=== PATIENT | female | born 1965 | race Caucasian/White ===

== ENCOUNTER 2017-02-12 16:30 | Emergency (ER) | payer OTHER, BC ==
[~2017-02-12] VITALS: Ht 172.7 cm; Wt 71.7 kg
[2017-02-12 16:31] VITALS: BP 125/84
--- NOTE | 2017-02-12 17:19 | RAD ---
Right hand, 3 views, 02/12/2017: History: Pain, injury No fracture or dislocation is identified.. The soft tissues are unremarkable. IMPRESSION: No acute right hand abnormality is detected.
[2017-02-12] MEDS ORDERED: HYDR-971 PO (17:29)
[2017-02-12] MEDS ORDERED: NAPR500T PO (17:29)
--- NOTE | 2017-02-12 17:31 | PHYS DOC ---
General Chief Complaint: HAND PROBLEM Stated Complaint: HAND INJURY Time Seen by MD: 16:45 Source: patient Exam Limitations: no limitations Problems: History of Present Illness Initial Comments Pt is 51/F to ED with Work Comp hand injury. 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 Pain immediately, severe at first now moderate-throbbing. No localization, screen fell across dorsal MCP joints, redness and bruising noted some soft tissue swelling.. No numbness/weakness/tingling/radiating sx, pt can use hand with discomfort. Pt to ED to r/o fracture. No prior injury. Onset: this afternoon Severity: moderate Pain/Injury Location: left hand, left 2nd finger, left 3rd finger, left 4th finger, left 5th finger Method of Injury: direct blow Modifying Factors: improves with cold therapy, improves with immobilization, worse with jarring, worse with movement, improves with rest Allergies: Coded Allergies: bacitracin (Verified Allergy, Severe, rash, 02/12/17) neomycin (Verified Allergy, Severe, rash, 02/12/17) polymyxin B (Verified Allergy, Severe, rash, 02/12/17) meperidine (Verified Allergy, Intermediate, rash, 02/12/17) Past Medical History Medical History: other (non-Hodgkins lymphoma, DM, HTN, hypothyroid) Surgical History: noncontributory Social History Smoker: non-smoker Alcohol: none Drugs: none Review of Systems Constitutional: denies chills, denies fever Respiratory: denies cough, denies shortness of breath Cardiovascular: denies chest pain, denies palpitations Gastrointestinal: denies nausea, denies vomiting Musculoskeletal: see HPI Psychiatric/Neurological: see HPI Physical Exam General Appearance: WD/WN, no apparent distress Neck: non-tender, supple Cardiovascular/Respiratory: normal peripheral pulses, no respiratory distress Wrist: normal inspection, non-tender, no evidence of injury Hand: swelling (L hand: approx 3cm wide line of redness/bruising across dorsal MCP joints left hand, some palmar bruising at MC heads noted. Ligs/ tendons intact no palpable bony deformity, pain generally w/tenderness no skin breaks) Neurologic/Tendon: normal sensation, normal motor functions, normal tendon functions, responds to pain, no evidence tendon injury Psychiatric: alert, oriented x 3 Skin: warm/dry (L hand as above) Orders, Labs, Meds L Hand: no acute bony abnormality Departure Time of Disposition: 17:30 Disposition: 01 HOME, SELF-CARE Diagnosis: left hand contusion Condition: GOOD Patient Instructions: Hand Contusion, [id number], RICE - Routine Care for Injuries, [id number] Additional Instructions: RICE, see handout. Activity as tolerated. Rx: naprosyn, norco 5mg #15 Take meds with food. Follow up with your doctor in 2 weeks if not better and with your employer re: work comp. Return to ED with new or changing symptoms. DINORA MARTÍNEZ DO Feb 12, 2017 17:31
== END 2017-02-12 17:35 | disposition home or self-care (01) ==
LOC: ER 16:30
DX: S60.222A Contusion of left hand, initial encounter (principal); E03.9 Hypothyroidism, unspecified; E11.9 Type 2 diabetes mellitus without complications; I10 Essential (primary) hypertension; Z85.72 Personal history of non-Hodgkin lymphomas; Z88.1 Allergy status to other antibiotic agents; Z88.8 Allergy status to other drugs, medicaments and biological substances; W20.8XXA Other cause of strike by thrown, projected or falling object, initial encounter; Y93.89 Activity, other specified; Y99.8 Other external cause status; Y92.89 Other specified places as the place of occurrence of the external cause
CPT/HCPCS: 73130; 99284

== ENCOUNTER → 2019-05-24 | Outpatient (CLI) | payer BC ==
[~2019-05-24] MED LIST: HYDR-3165 PO; NAPR-683 PO
[2019-05-24 10:20] LABS: ALBUMIN 3.8 g/dL (3.4-5.0); CALCIUM 9.6 mg/dL (8.5-10.1); CREATININE 1.2 mg/dL (0.6-1.0); GFR 47.2; POTASSIUM 4.1 mmol/L (3.5-5.1); TOTAL BILIRUBIN 0.2 mg/dL (0.2-1.0); TOTAL PROTEIN 7.5 g/dL (6.4-8.2)
== END | disposition home or self-care (01) ==
LOC: LAB 09:03
PROVIDERS: ATTEND Nurse Practitioner Gerontology
DX: R79.89 Other specified abnormal findings of blood chemistry (principal)
CPT/HCPCS: 36415; 80053

== ENCOUNTER 2019-07-24 07:58 | Inpatient (IN) | payer BC ==
[2019-07-24] VITALS (12 sets, daily range): BP systolic 145–198; BP diastolic 78–94
[~2019-07-24] VITALS: Ht 172.7 cm; Wt 75.3 kg
[2019-07-24] MEDS ORDERED: OMEP20TA8 PO (08:35)
[2019-07-24] MEDS ORDERED: ATOR40TA59 PO (08:35)
[2019-07-24] MEDS ORDERED: METF750T39 PO (08:35)
[2019-07-24] MEDS ORDERED: NEBI10TA3 PO (08:35)
[2019-07-24] MEDS ORDERED: PRAS10TA9 PO (08:35)
[2019-07-24] MEDS ORDERED: HYDR-2869 PO (08:35)
[2019-07-24] MEDS ORDERED: DILT240T8 PO (08:35)
[2019-07-24] MEDS ORDERED: DULA0.75 SQ (08:35)
[2019-07-24] MEDS ORDERED: MAGN400C PO (08:35)
[2019-07-24] MEDS ORDERED: LEVO125T PO (08:35)
[2019-07-24] MEDS ORDERED: ONDA4TAB7 PO (08:35)
[2019-07-24] MEDS ORDERED: METF500T11 PO (08:35)
[2019-07-24] MEDS ORDERED: SULF500T7 PO (08:35)
[2019-07-24] MEDS ORDERED: TEMA15CA PO (08:35)
[2019-07-24] MEDS ORDERED: ASPI-630 PO (08:35)
[2019-07-24] MEDS ORDERED: LISI-334 PO (08:35)
[2019-07-24] MEDS ORDERED: TRAM50TA PO (08:35)
[2019-07-24] MEDS ORDERED: TEMAZEPAM 15 MG CAPSULE PO SCH (10:00)
[2019-07-24] MEDS ORDERED: traMADol 50 MG TABLET PO PRN (10:00)
[2019-07-24 10:23] LABS: BASO % 1 % (0-3); EOS # 0.1 x10^3/uL (0.0-0.7); EOS % 1 % (0-3); HEMATOCRIT 33.1 % (36.0-47.0); HEMOGLOBIN 10.8 g/dL (12.0-15.5); LYMPH % 29 % (24-48); MEAN CORPUSCULAR HEMOGLOBIN 26 pg (25-35); MEAN CORPUSCULAR HGB CONC 33 g/dL (31-37); MEAN CORPUSCULAR VOLUME 80 fL (79-100); MONO # 0.6 x10^3/uL (0.0-1.1); MONO % 9 % (0-9); NEUT # 4.1 x10^3uL (1.8-7.7); NEUT % 60 % (31-73); PLATELET COUNT 281 x10^3/uL (140-400); RED BLOOD COUNT 4.16 x10^6/uL (3.50-5.40); RED CELL DISTRIBUTION WIDTH 15.4 % (11.5-14.5); WHITE BLOOD COUNT 6.9 x10^3/uL (4.0-11.0)
[2019-07-24 10:29] LABS: CALCIUM 9.4 mg/dL (8.5-10.1); CREATININE 1.3 mg/dL (0.6-1.0); MAGNESIUM 1.8 mg/dL (1.8-2.4); POTASSIUM 4.1 mmol/L (3.5-5.1)
[2019-07-24] MEDS ORDERED: ONDANSETRON ODT 4 MG TAB.RAPDIS PO PRN (10:30)
[2019-07-24] MEDS: DOFETILIDE 250 MCG CAPSULE PO SCH ×2 (10:55→21:00)
--- NOTE | 2019-07-24 11:57 | EKG ---
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
[2019-07-24] MEDS: ACETAMINOPHEN 325 MG TABLET PO PRN ×2 (12:58→19:31)
[2019-07-24] MEDS: MAGNESIUM OXIDE 400 MG TABLET PO SCH ×2 (15:10→20:38)
--- NOTE | 2019-07-24 16:45 | HP ---
ADMIT DATE: HISTORY OF PRESENT ILLNESS: The patient is a 53-year-old female patient who was admitted directly from the Cardiology office as the patient has atrial fibrillation. She apparently has had home monitor, which showed that she was in AFib. She also was complaining of chest pain, had had a stress test and underwent percutaneous coronary intervention with stent deployment on 06/29/2019. However, she continued to be very symptomatic; complaining of palpitation, dizziness and chest discomfort. She apparently was on Cardizem and Bystolic; however, her heart rate continued to be irregular and was admitted to be started on Tikosyn. PAST MEDICAL HISTORY: Significant for coronary artery disease, status post PCI with stent deployment; atrial fibrillation; type 2 diabetes mellitus; hypertension; hyperlipidemia; multinodular goiter; Hodgkin lymphoma, diagnosed in 1997, treated with chemotherapy and currently in remission. She is also known to have ankylosing spondylitis. She also had cholelithiasis for which she underwent ERCP and stone retrieval after her laparoscopic cholecystectomy. PAST SURGICAL HISTORY: Significant for PCI with stent deployment, cholecystectomy, total abdominal hysterectomy, bilateral salpingo-oophorectomy, bone marrow biopsy, thyroidectomy, esophagogastroduodenoscopy and colonoscopy as well as ERCP. ALLERGIES: She is allergic to BACITRACIN, MEPERIDINE, NEOMYCIN and POLYMYXIN. MEDICATIONS: She is currently on following medications: She is on sulfasalazine 1000 mg twice a day, Effient 10 mg once a day, atorvastatin calcium 40 mg daily, hydralazine 50 mg twice a day, Bystolic 20 mg once a day, diltiazem hydrochloride 240 mg once a day, lisinopril 20 mg daily, aspirin 81 mg once a day, tramadol 100 mg at bedtime, temazepam 15 mg capsule 1 capsule at bedtime as needed for insomnia, magnesium oxide 400 mg daily, ondansetron 4 mg every 4-6 hours as needed for nausea and vomiting, omeprazole 20 mg at bedtime, metformin 750 mg at bedtime and she is on Trulicity 0.75 mcg subcutaneously once a week, levothyroxine 125 mcg once a day. FAMILY HISTORY: She has one twin sister who is diabetic and one younger sister who is healthy. Her father is still alive at the age of 72 and has diabetes mellitus. Her mother at age of 29 because of rupture of cerebral aneurysm. SOCIAL HISTORY: She is single, never , has no kids. She does not smoke, drink alcohol or use any recreational drugs. 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 REVIEW OF SYSTEMS: The patient denied any blurring of vision, cataract, glaucoma or macular degeneration. Denied any earache, tinnitus or sensorineural deafness. Denied any nosebleeds, stuffy nose or postnasal drip. Denied any sore throat, sore tongue, toothache, hoarseness of voice or difficulty swallowing. Denied any nausea, vomiting, diarrhea or constipation. Denied any hematemesis, melena or hematochezia. Denied any dysuria, frequency or hematuria. Did complain of chest discomfort and shortness of breath as well as palpitation, but denied any orthopnea or paroxysmal nocturnal dyspnea. Denied any cough, phlegm or hemoptysis. Denied any chills, rigors or fever. PHYSICAL EXAMINATION: GENERAL: On arrival to the ICU, she looked well and was clearly in no apparent respiratory distress, slightly pale, but no jaundice, cyanosis or thyromegaly. No jugular venous distention. No limb edema. VITAL SIGNS: Her heart rate was 64, irregularly irregular; blood pressure 169/82; temperature was 98; respiratory rate was 12 and oxygen saturation was 98% on room air. HEAD, EYES, EARS, NOSE AND THROAT: Showed normocephalic, atraumatic. NECK: Supple. HEART: Showed regular first heart sound, normal second heart sounds with no gallop, rub or murmur. CHEST: Clear to auscultation. No crepitation or rhonchi. ABDOMEN: Distended, soft, nontender. NEUROLOGIC: She is awake, alert, responding appropriately. All cranial nerves intact. She moves extremities without difficulty. She ambulates without assistance or assistive device. LABORATORY DATA: Showed a white cell count of 6900, hemoglobin 11, hematocrit 33, MCV 80 and platelet count 281,000 with normal manual differential. Her chemistry showed a serum sodium 141, potassium 4.1, chloride 105, bicarbonate 25, anion gap of 11, BUN 16, creatinine 1.3, estimated GFR was 43 mL per minute. Her glucose was 92, calcium was 9.4, and magnesium was 1.8. ASSESSMENT AND PLAN: In summary, this is a 53-year-old female patient who has atrial fibrillation that controlled by Cardizem and Bystolic. She is here to be switched to Tikosyn. My plan is to continue all her medication, increase her magnesium supplement to 400 mg 3 times a day. Check her TSH tomorrow. PAPA BERMUDEZ MD DR: JEFF/vianey JOB#: [id number] / [id number]
--- NOTE | 2019-07-24 16:57 | EKG ---
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
--- NOTE | 2019-07-24 17:08 | PDOC2 ---
CONSULT Date of Admission DATE: 07/24/19 TIME: 17:08 Reason for Consult: Atrial fibrillation Referring Physician: Dr. Saavedra Source: Chart review, Patient History of Present Illness 53-year-old female with history of recurrent atrial fibrillation has been admitted for initiation of Tikosyn/Dofetilide for antiarrhythmic therapy. Patient complained of intermittent episodes of palpitations but denied any dizziness or syncope. She complained of mild chest pain with these palpitations but she denied any chest pain or dyspnea on exertion when she is not having any palpitations. She denied any orthopnea/PND. Past Medical History Paroxysmal atrial fibrillation Coronary artery disease s/p PCI/stent placement LCx Hypertension Hyperlipidemia Hypothyroidism Hodgkin's lymphoma s/p chemotherapy Past Surgical History Cholecystectomy Hysterectomy Thyroidectomy Family History Diabetes mellitus and hypertension Social History Patient denied any smoking, alcohol or drug use Current Medications Current Medications Influenza Virus Vaccine Quadrival (Afluria Quad 2019-20 (3yr Up) Syringe) 0.5 ml ONCE ONCE VAX IM ; Start 07/25/19 at 09:00; Stop 07/25/19 at 09:01 Dofetilide (Tikosyn) 250 mcg BID PO Last administered on 07/24/19at 10:55; Start 07/24/19 at 11:00 Aspirin (Children'S Aspirin) 81 mg DAILY PO ; Start 07/25/19 at 09:00 Hydralazine HCl (Apresoline) 50 mg BID PO ; Start 07/24/19 at 21:00 Levothyroxine Sodium (Synthroid) 125 mcg DAILY06 PO ; Start 07/25/19 at 06:00 Lisinopril (Prinivil) 20 mg DAILY PO ; Start 07/25/19 at 09:00 Metformin HCl (Glucophage Xr) 500 mg HS PO ; Start 07/24/19 at 21:00 Prasugrel (Effient) 10 mg DAILY PO ; Start 07/25/19 at 09:00 Sulfasalazine (Azulfidine) 1,000 mg BID PO ; Start 07/24/19 at 21:00 Temazepam (Restoril) 15 mg PRN QHS PO ; Start 07/24/19 at 10:00 Tramadol HCl (Ultram) 100 mg HS PRN PO PAIN; Start 07/24/19 at 10:00 Atorvastatin Calcium (Lipitor) 40 mg DAILY PO ; Start 07/25/19 at 09:00 Diltiazem HCl (Cardizem 24hr Cd) 240 mg DAILY PO ; Start 07/25/19 at 09:00 Non-Formulary Medication (Dulaglutide (Trulicity)) 0.75 mg WEEKLY SQ ; Start 07/31/19 at 09:00; Status UNV Magnesium Oxide (Magnesium Oxide) 400 mg DAILY PO ; Start 07/25/19 at 09:00; Stop 07/24/19 at 14:54; Status DC Metformin HCl (Glucophage Xr) 750 mg DAILYWBKFT PO ; Start 07/25/19 at 08:00 Metoprolol Tartrate (Lopressor) 50 mg BID PO ; Start 07/24/19 at 21:00; Stop 07/24/19 at 11:09; Status DC Pantoprazole Sodium (Protonix) 40 mg QHS PO ; Start 07/24/19 at 21:00 Ondansetron HCl (Zofran Odt) 4 mg PRN Q4HRS PRN PO NAUSEA/VOMITING; Start 07/24 at 10:30 Acetaminophen (Tylenol) 650 mg PRN Q6HRS PRN PO fever, headache Last administered on 07/24/19at 12:58; Start 07/24/19 at 13:00 Magnesium Oxide (Magnesium Oxide) 400 mg TID PO Last administered on 07/24/19at 15:10; Start 07/24/19 at 15:00 Active Scripts Active Reported Magnesium (Magnesium Oxide) 400 Mg Capsule 1 Cap PO DAILY Zofran (Ondansetron Hcl) 4 Mg Tablet 1 Tab PO PRN Q4-6HRS Temazepam 15 Mg Capsule 1 Cap PO PRN QHS Tramadol Hcl (Tramadol HCl) 50 Mg Tablet 100 Mg PO HS PRN Omeprazole 20 Mg Tablet.dr 1 Tab PO HS Sulfasalazine 500 Mg Tablet 1,000 Mg PO BID Metformin Hcl Er (Metformin Hcl) 500 Mg Tab.er.24h 1 Tab PO HS Metformin Hcl Er (Metformin Hcl) 750 Mg Tab.er.24h 1 Tab PO DAILY Trulicity (Dulaglutide) 0.75 Mg/0.5 Ml Pen.injctr 0.75 Mg SQ WEEKLY Synthroid (Levothyroxine Sodium) 125 Mcg Tablet 1 Tab PO DAILY Atorvastatin Calcium 40 Mg Tablet 1 Tab PO DAILY Diltiazem 24Hr ER (Diltiazem HCl) 240 Mg Tab.er.24h 240 Mg PO DAILY Bystolic (Nebivolol Hcl) 10 Mg Tablet 2 Tab PO DAILY Hydralazine Hcl 50 Mg Tablet 1 Tab PO BID Lisinopril 20 Mg Tablet 1 Tab PO DAILY Aspirin 81 Mg Tab.chew 81 Mg PO DAILY Effient (Prasugrel Hcl) 10 Mg Tablet 1 Tab PO DAILY Allergies: Coded Allergies: bacitracin (Verified Allergy, Severe, rash, 02/12/17) neomycin (Verified Allergy, Severe, rash, 02/12/17) polymyxin B (Verified Allergy, Severe, rash, 02/12/17) meperidine (Verified Allergy, Intermediate, rash, 02/12/17) PSYCHOLOGICAL ROS: No: Hallucinations Eyes: No: Loss of vision HEENT: No: Epistaxis Respiratory: No: Hemoptysis, Shortness of breath Cardiovascular: yes: Chest Pain, Palpitations Gastrointestinal: No: Vomiting Genitourinary: No: [place] Neurological: No: Seizures Skin: No: Rash General: Alert, Oriented X3 HEENT: Atraumatic, PERRLA Lungs: Clear to auscultation Heart: Regular rate Abdomen: Soft, No tenderness Extremities: No edema Psych/Mental Status: Mood NL VITALS Vital Signs Date Time Temp Pulse Resp B/P (MAP) Pulse Ox O2 Delivery O2 Flow Rate FiO2 07/24/19 17:02 60 14 186/86 (119) 100 Room Air 07/24/19 16:17 98.2 Labs Laboratory Tests Test 07/24/19 10:10 White Blood Count 6.9 x10^3/uL (4.0-11.0) Red Blood Count 4.16 x10^6/uL (3.50-5.40) Hemoglobin 10.8 g/dL (12.0-15.5) Hematocrit 33.1 % (36.0-47.0) Mean Corpuscular Volume 80 fL (79-100) Mean Corpuscular Hemoglobin 26 pg (25-35) Mean Corpuscular Hemoglobin Concent 33 g/dL (31-37) Red Cell Distribution Width 15.4 % (11.5-14.5) Platelet Count 281 x10^3/uL (140-400) Neutrophils (%) (Auto) 60 % (31-73) Lymphocytes (%) (Auto) 29 % (24-48) Monocytes (%) (Auto) 9 % (0-9) Eosinophils (%) (Auto) 1 % (0-3) Basophils (%) (Auto) 1 % (0-3) Neutrophils # (Auto) 4.1 x10^3uL (1.8-7.7) Lymphocytes # (Auto) 2.0 x10^3/uL (1.0-4.8) Monocytes # (Auto) 0.6 x10^3/uL (0.0-1.1) Eosinophils # (Auto) 0.1 x10^3/uL (0.0-0.7) Basophils # (Auto) 0.0 x10^3/uL (0.0-0.2) Sodium Level 141 mmol/L (136-145) Potassium Level 4.1 mmol/L (3.5-5.1) Chloride Level 105 mmol/L (98-107) Carbon Dioxide Level 25 mmol/L (21-32) Anion Gap 11 (6-14) Blood Urea Nitrogen 16 mg/dL (7-20) Creatinine 1.3 mg/dL (0.6-1.0) Estimated GFR (Cockcroft-Gault) 43.0 Glucose Level 92 mg/dL (70-99) Calcium Level 9.4 mg/dL (8.5-10.1) Magnesium Level 1.8 mg/dL (1.8-2.4) Assessment/Plan 1. Paroxysmal atrial fibrillation with recurrent episodes. Telemetry showed few paroxysms. Patient is being symptomatic with palpitations and chest pain with these episodes. LV systolic function normal recent echo. Start Tikosyn for antiarrhythmic therapy and monitor QTc interval on EKG closely. Patient's ChadsVasc score is 4 and would benefit from anticoagulation. 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 Patient is currently scheduled to see electrophysiology team. 2. Hypertension: Slightly elevated. Resume home antihypertensives and titrate for better control. 3. Coronary artery disease s/p PCI/stent to LCx, presently stable and chest pain-free. Continue current secondary prevention measures. 4. Hyperlipidemia: Continue statin therapy. 5. Diabetes mellitus type 2: Treat per GEOVANNA MONROE MD Jul 24, 2019 17:08
[2019-07-24] MEDS: sulfaSALAzine 500 MG TABLET PO SCH (20:38)
[2019-07-24] MEDS ORDERED: PANTOPRAZOLE 40 MG TABLET. PO SCH (21:00)
[2019-07-24] MEDS ORDERED: METOPROLOL TART IMMED RELEASE 50 MG TABLET PO SCH (21:00)
[2019-07-24] MEDS ORDERED: metFORMIN XR 500 MG TAB.ER.24H PO SCH (21:00)
[2019-07-25] VITALS (11 sets, daily range): BP systolic 150–166; BP diastolic 66–99
[2019-07-25] MEDS ORDERED: LEVOTHYROXINE 125 MCG TABLET PO SCH (06:00)
[2019-07-25 07:11] LABS: CALCIUM 9.3 mg/dL (8.5-10.1); CREATININE 1.1 mg/dL (0.6-1.0); GFR 52.2; HEMATOCRIT 35.5 % (36.0-47.0); HEMOGLOBIN 11.7 g/dL (12.0-15.5); PHOSPHORUS 3.8 mg/dL (2.6-4.7); RED BLOOD COUNT 4.52 x10^6/uL (3.50-5.40); RED CELL DISTRIBUTION WIDTH 15.3 % (11.5-14.5); WHITE BLOOD COUNT 6.2 x10^3/uL (4.0-11.0)
[2019-07-25] MEDS ORDERED: metFORMIN XR 500 MG TAB.ER.24H PO SCH (08:00)
[2019-07-25] MEDS: sulfaSALAzine 500 MG TABLET PO SCH (08:17)
[2019-07-25] MEDS: MAGNESIUM OXIDE 400 MG TABLET PO SCH ×2 (08:18→13:50)
[2019-07-25] MEDS ORDERED: FLU VAX QS 2019-20 (36MOS+)/PF 0.5 ML SYRINGE. VAX IM ONE (09:00)
[2019-07-25] MEDS ORDERED: ASPIRIN 81 MG TAB.CHEW PO SCH (09:00)
[2019-07-25] MEDS ORDERED: LISINOPRIL 20 MG TABLET PO SCH (09:00)
[2019-07-25] MEDS ORDERED: ATORVASTATIN CALCIUM 20 MG TABLET PO SCH (09:00)
[2019-07-25] MEDS ORDERED: MAGNESIUM OXIDE 400 MG TABLET PO SCH (09:00)
[2019-07-25] MEDS ORDERED: PRASUGREL 10 MG TABLET. PO SCH (09:00)
[2019-07-25] MEDS: DOFETILIDE 250 MCG CAPSULE PO SCH ×2 (09:09→17:28)
[2019-07-25] MEDS: ACETAMINOPHEN 325 MG TABLET PO PRN (13:49)
--- NOTE | 2019-07-25 14:54 | PDOC ---
PROGRESS NOTES Diagnosis DIAGNOSIS atrial fibrillation Assessment Atrial fibrillation-now in sinus rhythm -Cardiology primary team-managing problem -Started on Tikosyn and the patient had converted -Treatment per cardiology, on diltiazem and Tikosyn Hypertension -Continue lisinopril Hyperlipidemia -Continue Lipitor Diabetes type 2 -On metformin Hypothyroidism -Continue Synthroid Insomnia -Temazepam when necessary Subjective the patient is feeling well, no fevers, no chills, no chest pain, shortness of breath Objective Vital Signs Date Time Temp Pulse Resp B/P (MAP) Pulse Ox O2 Delivery O2 Flow Rate FiO2 07/25/19 11:45 97.4 66 18 166/66 (99) 98 Room Air Intake and Output 07/25/19 07:00 Intake Total 575 ml Balance 575 ml Intake Oral 575 ml # Voids 2 Physical Exam alert and oriented 3, no acute distress PERRLA, EOMI Regular rate and rhythm Clear to auscultation bilaterally Pounds, nontender, nondistended Cranial nerves II through XII grossly intact No rashes No edema Review of Relevant I have reviewed the following items yamil (where applicable) has been applied. Labs Laboratory Tests Test 07/24/19 10:10 07/25/19 05:55 White Blood Count 6.9 x10^3/uL (4.0-11.0) 6.2 x10^3/uL (4.0-11.0) Red Blood Count 4.16 x10^6/uL (3.50-5.40) 4.52 x10^6/uL (3.50-5.40) Hemoglobin 10.8 g/dL (12.0-15.5) 11.7 g/dL (12.0-15.5) Hematocrit 33.1 % (36.0-47.0) 35.5 % (36.0-47.0) Mean Corpuscular Volume 80 fL (79-100) 79 fL (79-100) Mean Corpuscular Hemoglobin 26 pg (25-35) 26 pg (25-35) Mean Corpuscular Hemoglobin Concent 33 g/dL (31-37) 33 g/dL (31-37) Red Cell Distribution Width 15.4 % (11.5-14.5) 15.3 % (11.5-14.5) Platelet Count 281 x10^3/uL (140-400) 305 x10^3/uL (140-400) Neutrophils (%) (Auto) 60 % (31-73) Lymphocytes (%) (Auto) 29 % (24-48) Monocytes (%) (Auto) 9 % (0-9) Eosinophils (%) (Auto) 1 % (0-3) Basophils (%) (Auto) 1 % (0-3) Neutrophils # (Auto) 4.1 x10^3uL (1.8-7.7) Lymphocytes # (Auto) 2.0 x10^3/uL (1.0-4.8) Monocytes # (Auto) 0.6 x10^3/uL (0.0-1.1) Eosinophils # (Auto) 0.1 x10^3/uL (0.0-0.7) Basophils # (Auto) 0.0 x10^3/uL (0.0-0.2) Sodium Level 141 mmol/L (136-145) 141 mmol/L (136-145) Potassium Level 4.1 mmol/L (3.5-5.1) 4.0 mmol/L (3.5-5.1) Chloride Level 105 mmol/L (98-107) 105 mmol/L (98-107) Carbon Dioxide Level 25 mmol/L (21-32) 24 mmol/L (21-32) Anion Gap 11 (6-14) 12 (6-14) Blood Urea Nitrogen 16 mg/dL (7-20) 14 mg/dL (7-20) Creatinine 1.3 mg/dL (0.6-1.0) 1.1 mg/dL (0.6-1.0) Estimated GFR (Cockcroft-Gault) 43.0 52.2 Glucose Level 92 mg/dL (70-99) 99 mg/dL (70-99) Calcium Level 9.4 mg/dL (8.5-10.1) 9.3 mg/dL (8.5-10.1) Magnesium Level 1.8 mg/dL (1.8-2.4) 2.0 mg/dL (1.8-2.4) Phosphorus Level 3.8 mg/dL (2.6-4.7) Thyroid Stimulating Hormone (TSH) 3.842 uIU/mL (0.358-3.740) Medications Current Medications Influenza Virus Vaccine Quadrival (Afluria Quad 2019-20 (3yr Up) Syringe) 0.5 ml ONCE ONCE VAX IM Last administered on 07/25/19 08:20; Start 07/25/19 at 09:00; Stop 07/25/19 at 09:01; Status DC Dofetilide (Tikosyn) 250 mcg BID PO Last administered on 07/25/19at 09:09; Start 07/24/19 at 11:00 Aspirin (Children'S Aspirin) 81 mg DAILY PO Last administered on 07/25/19at 08:18; Start 07/25/19 at 09:00 Hydralazine HCl (Apresoline) 50 mg BID PO Last administered on 07/25/19 08:18; Start 07/24/19 at 21:00 Levothyroxine Sodium (Synthroid) 125 mcg DAILY06 PO Last administered on 07/25/19at 05:52; Start 07/25/19 at 06:00 Lisinopril (Prinivil) 20 mg DAILY PO Last administered on 07/25/19at 08:19; Start 07/25/19 at 09:00 Metformin HCl (Glucophage Xr) 500 mg HS PO Last administered on 07/24/19at 20:39; Start 07/24/19 at 21:00 Prasugrel (Effient) 10 mg DAILY PO Last administered on 07/25/19at 08:20; Start 07/25/19 at 09:00 Sulfasalazine (Azulfidine) 1,000 mg BID PO Last administered on 07/25/19at 08:17; Start 07/24/19 at 21:00 Temazepam (Restoril) 15 mg PRN QHS PO Last administered on 07/24/19at 21:58; Start 07/24/19 at 10:00 Tramadol HCl (Ultram) 100 mg HS PRN PO PAIN Last administered on 07/24/19 21:56; Start 07/24/19 at 10:00 Atorvastatin Calcium (Lipitor) 40 mg DAILY PO Last administered on 07/25/19at 08:17; Start 07/25/19 at 09:00 Diltiazem HCl (Cardizem 24hr Cd) 240 mg DAILY PO Last administered on 07/25/19at 09:09; Start 07/25/19 at 09:00 Non-Formulary Medication (Dulaglutide (Trulicity)) 0.75 mg WEEKLY SQ ; Start 07/31/19 at 09:00; Status UNV Magnesium Oxide (Magnesium Oxide) 400 mg DAILY PO ; Start 07/25/19 at 09:00; Stop 07/24/19 at 14:54; Status DC Metformin HCl (Glucophage Xr) 750 mg DAILYWBKFT PO Last administered on 07/25/19at 08:17; Start 07/25/19 at 08:00 Metoprolol Tartrate (Lopressor) 50 mg BID PO ; Start 07/24/19 at 21:00; Stop 07/24/19 at 11:09; Status DC Pantoprazole Sodium (Protonix) 40 mg QHS PO Last administered on 07/24/19at 20:38; Start 07/24/19 at 21:00 Ondansetron HCl (Zofran Odt) 4 mg PRN Q4HRS PRN PO NAUSEA/VOMITING; Start 07/24/19 at 10:30 Acetaminophen (Tylenol) 650 mg PRN Q6HRS PRN PO fever, headache Last administered on 07/25/19at 13:49; Start 07/24/19 at 13:00 Magnesium Oxide (Magnesium Oxide) 400 mg TID PO Last administered on 07/25/19at 13:50; Start 07/24/19 at 15:00 Active Scripts Active Reported Magnesium (Magnesium Oxide) 400 Mg Capsule 1 Cap PO DAILY Zofran (Ondansetron Hcl) 4 Mg Tablet 1 Tab PO PRN Q4-6HRS Temazepam 15 Mg Capsule 1 Cap PO PRN QHS Tramadol Hcl (Tramadol HCl) 50 Mg Tablet 100 Mg PO HS PRN Omeprazole 20 Mg Tablet.dr 1 Tab PO HS Sulfasalazine 500 Mg Tablet 1,000 Mg PO BID Metformin Hcl Er (Metformin Hcl) 500 Mg Tab.er.24h 1 Tab PO HS Metformin Hcl Er (Metformin Hcl) 750 Mg Tab.er.24h 1 Tab PO DAILY Trulicity (Dulaglutide) 0.75 Mg/0.5 Ml Pen.injctr 0.75 Mg SQ WEEKLY Synthroid (Levothyroxine Sodium) 125 Mcg Tablet 1 Tab PO DAILY Atorvastatin Calcium 40 Mg Tablet 1 Tab PO DAILY Diltiazem 24Hr ER (Diltiazem HCl) 240 Mg Tab.er.24h 240 Mg PO DAILY Bystolic (Nebivolol Hcl) 10 Mg Tablet 2 Tab PO DAILY Hydralazine Hcl 50 Mg Tablet 1 Tab PO BID Lisinopril 20 Mg Tablet 1 Tab PO DAILY Aspirin 81 Mg Tab.chew 81 Mg PO DAILY Effient (Prasugrel Hcl) 10 Mg Tablet 1 Tab PO DAILY Vitals/I & O Vital Sign - Last 24 Hours 07/24/19 07/24/19 07/24/19 07/24/19 14:55 16:14 16:17 17:02 Temp 98.2 Pulse 76 71 60 Resp 14 14 14 B/P (MAP) 161/83 (109) 173/92 (119) 186/86 (119) Pulse Ox 100 100 100 O2 Delivery Room Air Room Air Room Air Room Air 07/24/19 07/24/19 07/24/19 07/24/19 18:06 18:57 20:07 20:38 Temp 98.5 Pulse 63 63 60 60 Resp 18 22 18 B/P (MAP) 173/94 (120) 173/89 (117) 175/83 (113) 175/83 Pulse Ox 98 98 100 O2 Delivery Room Air Room Air Room Air 07/24/19 07/24/19 07/24/19 07/24/19 21:00 21:56 22:17 22:59 Pulse 56 58 Resp 18 18 18 16 B/P (MAP) 198/90 (126) 186/92 (123) Pulse Ox 99 99 98 O2 Delivery Room Air Room Air Room Air Room Air 07/24/19 07/25/19 07/25/19 07/25/19 23:00 00:20 02:00 03:00 Pulse 59 80 79 81 Resp 16 16 16 16 B/P (MAP) 169/78 (108) 153/99 (117) 162/87 (112) 165/76 (105) Pulse Ox 98 99 98 98 O2 Delivery Room Air Room Air Room Air Room Air 07/25/19 07/25/19 07/25/19 07/25/19 04:04 05:01 06:06 07:30 Temp 97.6 Pulse 81 74 89 72 Resp 16 16 18 20 B/P (MAP) 150/87 (108) 150/96 (114) 166/97 (120) 162/95 (117) Pulse Ox 98 98 100 98 O2 Delivery Room Air Room Air Room Air Room Air 07/25/19 07/25/19 07/25/19 07/25/19 08:18 08:19 08:30 09:09 Pulse 70 89 Resp 16 B/P (MAP) 162/95 162/95 164/97 (119) 162/95 Pulse Ox 98 O2 Delivery Room Air 07/25/19 07/25/19 09:30 11:45 Temp 97.4 Pulse 68 66 Resp 20 18 B/P (MAP) 161/70 (100) 166/66 (99) Pulse Ox 98 98 O2 Delivery Room Air Room Air Intake and Output 07/24/19 07/24/19 07/25/19 15:00 23:00 07:00 Intake Total 275 ml 300 ml Balance 275 ml 300 ml DREW SHARMA MD Jul 25, 2019 14:54
[2019-07-25] MEDS ORDERED: DOFE250C PO (17:17)
--- NOTE | 2019-07-25 18:34 | EKG ---
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
--- NOTE | 2019-07-25 23:20 | PDOC3 ---
Discharge Summary Visit Information Date of Admission: Jul 24, 2019 Date of Discharge: Jul 25, 2019 Admitting Diagnosis: 1. PAF Admitting Diagnosis Comments 1. PAF - Recurrent palpitations, afib with symptoms of angina 2. CAD s/p PCI 3. HTN Final Diagnosis 1. PAF 2. HTN 3. CAD 4. DM2 5. Dyslipidemia Brief Hospital Course Allergies Allergies Coded Allergies Type Severity Reaction Last Updated Verified bacitracin Allergy Severe rash 02/12/17 Yes neomycin Allergy Severe rash 02/12/17 Yes polymyxin B Allergy Severe rash 02/12/17 Yes meperidine Allergy Intermediate rash 02/12/17 Yes Vital Signs Vital Signs Date Time Temp Pulse Resp B/P (MAP) Pulse Ox O2 Delivery O2 Flow Rate FiO2 07/25/19 17:34 70 20 164/67 (99) 98 Room Air 07/25/19 11:45 97.4 Lab Results Laboratory Tests Test 07/24/19 10:10 07/25/19 05:55 White Blood Count 6.9 x10^3/uL (4.0-11.0) 6.2 x10^3/uL (4.0-11.0) Red Blood Count 4.16 x10^6/uL (3.50-5.40) 4.52 x10^6/uL (3.50-5.40) Hemoglobin 10.8 g/dL (12.0-15.5) 11.7 g/dL (12.0-15.5) Hematocrit 33.1 % (36.0-47.0) 35.5 % (36.0-47.0) Mean Corpuscular Volume 80 fL (79-100) 79 fL (79-100) Mean Corpuscular Hemoglobin 26 pg (25-35) 26 pg (25-35) Mean Corpuscular Hemoglobin Concent 33 g/dL (31-37) 33 g/dL (31-37) Red Cell Distribution Width 15.4 % (11.5-14.5) 15.3 % (11.5-14.5) Platelet Count 281 x10^3/uL (140-400) 305 x10^3/uL (140-400) Neutrophils (%) (Auto) 60 % (31-73) Lymphocytes (%) (Auto) 29 % (24-48) Monocytes (%) (Auto) 9 % (0-9) Eosinophils (%) (Auto) 1 % (0-3) Basophils (%) (Auto) 1 % (0-3) Neutrophils # (Auto) 4.1 x10^3uL (1.8-7.7) Lymphocytes # (Auto) 2.0 x10^3/uL (1.0-4.8) Monocytes # (Auto) 0.6 x10^3/uL (0.0-1.1) Eosinophils # (Auto) 0.1 x10^3/uL (0.0-0.7) Basophils # (Auto) 0.0 x10^3/uL (0.0-0.2) Sodium Level 141 mmol/L (136-145) 141 mmol/L (136-145) Potassium Level 4.1 mmol/L (3.5-5.1) 4.0 mmol/L (3.5-5.1) Chloride Level 105 mmol/L (98-107) 105 mmol/L (98-107) Carbon Dioxide Level 25 mmol/L (21-32) 24 mmol/L (21-32) Anion Gap 11 (6-14) 12 (6-14) Blood Urea Nitrogen 16 mg/dL (7-20) 14 mg/dL (7-20) Creatinine 1.3 mg/dL (0.6-1.0) 1.1 mg/dL (0.6-1.0) Estimated GFR (Cockcroft-Gault) 43.0 52.2 Glucose Level 92 mg/dL (70-99) 99 mg/dL (70-99) Calcium Level 9.4 mg/dL (8.5-10.1) 9.3 mg/dL (8.5-10.1) Magnesium Level 1.8 mg/dL (1.8-2.4) 2.0 mg/dL (1.8-2.4) Phosphorus Level 3.8 mg/dL (2.6-4.7) Thyroid Stimulating Hormone (TSH) 3.842 uIU/mL (0.358-3.740) Brief Hospital Course Ms. Muniz is a 53 old [F] who was seen in the office last week with worsening paroxysms of afib. After a long discussion regarding various approaches to treatment, she ultimately chose anti-arrhythmic drug therapy. Due to her CAD, structural heart disease and prior lung disease, she was felt to be a poor candidate for amiodarone and Class 1 C agents. Therefore, she presented to the hospital for elective admission for Dofetilide loading. She had 4 doses and repeat EKG's were unremarkable. She was discharged to home in stable condition with EP follow up in 1 week. On day of discharge, he exam was unremarkable. Discharge Information Condition at Discharge: Stable Follow Up: Weeks Disposition/Orders: D/C to Home Dischare Medications Current Medications Influenza Virus Vaccine Quadrival (Afluria Quad 2019-20 (3yr Up) Syringe) 0.5 ml ONCE ONCE VAX IM Last administered on 07/25/19at 08:20; Start 07/25/19 at 09:00; Stop 07/25/19 at 09:01; Status DC Dofetilide (Tikosyn) 250 mcg BID PO Last administered on 07/25/19at 17:28; Start 07/24/19 at 11:00; Stop 07/25/19 at 17:55; Status DC Aspirin (Children'S Aspirin) 81 mg DAILY PO Last administered on 07/25/19at 08:18; Start 07/25/19 at 09:00; Stop 07/25/19 at 17:55; Status DC Hydralazine HCl (Apresoline) 50 mg BID PO Last administered on 07/25/19at 08:18; Start 07/24/19 at 21:00; Stop 07/25/19 at 17:55; Status DC Levothyroxine Sodium (Synthroid) 125 mcg DAILY06 PO Last administered on 07/25/19at 05:52; Start 07/25/19 at 06:00; Stop 07/25/19 at 17:55; Status DC Lisinopril (Prinivil) 20 mg DAILY PO Last administered on 07/25/19at 08:19; Start 07/25/19 at 09:00; Stop 07/25/19 at 17:55; Status DC Metformin HCl (Glucophage Xr) 500 mg HS PO Last administered on 07/24/19at 20:39; Start 07/24/19 at 21:00; Stop 07/25/19 at 17:55; Status DC Prasugrel (Effient) 10 mg DAILY PO Last administered on 07/25/19at 08:20; Start 07/25/19 at 09:00; Stop 07/25/19 at 17:55; Status DC Sulfasalazine (Azulfidine) 1,000 mg BID PO Last administered on 07/25/19at 08:17; Start 07/24/19 at 21:00; Stop 07/25/19 at 17:55; Status DC Temazepam (Restoril) 15 mg PRN QHS PO Last administered on 07/24/19at 21:58; Start 07/24/19 at 10:00; Stop 07/25/19 at 17:55; Status DC Tramadol HCl (Ultram) 100 mg HS PRN PO PAIN Last administered on 07/24/19at 21:56; Start 07/24/19 at 10:00; Stop 07/25/19 at 17:55; Status DC Atorvastatin Calcium (Lipitor) 40 mg DAILY PO Last administered on 07/25/19at 08:17; Start 07/25/19 at 09:00; Stop 07/25/19 at 17:55; Status DC Diltiazem HCl (Cardizem 24hr Cd) 240 mg DAILY PO Last administered on 07/25/19at 09:09; Start 07/25/19 at 09:00; Stop 07/25/19 at 17:55; Status DC Non-Formulary Medication (Dulaglutide (Trulicity)) 0.75 mg WEEKLY SQ ; Start 07/31/19 at 09:00; Stop 07/25/19 at 17:55; Status DC Magnesium Oxide (Magnesium Oxide) 400 mg DAILY PO ; Start 07/25/19 at 09:00; Stop 07/24/19 at 14:54; Status DC Metformin HCl (Glucophage Xr) 750 mg DAILYWBKFT PO Last administered on 07/25/19at 08:17; Start 07/25/19 at 08:00; Stop 07/25/19 at 17:55; Status DC Metoprolol Tartrate (Lopressor) 50 mg BID PO ; Start 07/24/19 at 21:00; Stop 07/24/19 at 11:09; Status DC Pantoprazole Sodium (Protonix) 40 mg QHS PO Last administered on 07/24/19at 20:38; Start 07/24/19 at 21:00; Stop 07/25/19 at 17:55; Status DC Ondansetron HCl (Zofran Odt) 4 mg PRN Q4HRS PRN PO NAUSEA/VOMITING; Start 07/24/19 at 10:30; Stop 07/25/19 at 17:55; Status DC Acetaminophen (Tylenol) 650 mg PRN Q6HRS PRN PO fever, headache Last administered on 07/25/19at 13:49; Start 07/24/19 at 13:00; Stop 07/25/19 at 17:55; Status DC Magnesium Oxide (Magnesium Oxide) 400 mg TID PO Last administered on 07/25/19at 13:50; Start 07/24/19 at 15:00; Stop 07/25/19 at 17:55; Status DC Active Scripts Active Reported Tikosyn (Dofetilide) 250 Mcg Capsule 250 Mcg PO BID Magnesium (Magnesium Oxide) 400 Mg Capsule 1 Cap PO DAILY Zofran (Ondansetron Hcl) 4 Mg Tablet 1 Tab PO PRN Q4-6HRS Temazepam 15 Mg Capsule 1 Cap PO PRN QHS Tramadol Hcl (Tramadol HCl) 50 Mg Tablet 100 Mg PO HS PRN Omeprazole 20 Mg Tablet.dr 1 Tab PO HS Sulfasalazine 500 Mg Tablet 1,000 Mg PO BID Metformin Hcl Er (Metformin Hcl) 500 Mg Tab.er.24h 1 Tab PO HS Metformin Hcl Er (Metformin Hcl) 750 Mg Tab.er.24h 1 Tab PO DAILY Trulicity (Dulaglutide) 0.75 Mg/0.5 Ml Pen.injctr 0.75 Mg SQ WEEKLY Synthroid (Levothyroxine Sodium) 125 Mcg Tablet 1 Tab PO DAILY Atorvastatin Calcium 40 Mg Tablet 1 Tab PO DAILY Diltiazem 24Hr ER (Diltiazem HCl) 240 Mg Tab.er.24h 240 Mg PO DAILY Hydralazine Hcl 50 Mg Tablet 1 Tab PO BID Lisinopril 20 Mg Tablet 1 Tab PO DAILY Aspirin 81 Mg Tab.chew 81 Mg PO DAILY Effient (Prasugrel Hcl) 10 Mg Tablet 1 Tab PO DAILY GLORIA JENSEN MD Jul 25, 2019 23:20
[2019-07-31] MEDS ORDERED: NON FORMULARY ITEM (Dulaglutide (Trulicity) 0.75 MG) SQ SCH (09:00)
--- NOTE | 2019-08-01 07:36 | EKG ---
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
--- NOTE | 2019-08-01 07:36 | EKG ---
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
--- NOTE | 2019-08-01 07:36 | EKG ---
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
--- NOTE | 2019-08-02 09:18 | EKG ---
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
== END 2019-07-25 17:54 | disposition home or self-care (01) | DRG 310 ==
LOC: ICU 08:01
PROVIDERS: ADMIT Internal Medicine Cardiovascular Disease; ATTEND Internal Medicine Cardiovascular Disease
DX: I48.0 Paroxysmal atrial fibrillation (principal); I10 Essential (primary) hypertension; E11.9 Type 2 diabetes mellitus without complications; E78.5 Hyperlipidemia, unspecified; I25.10 Atherosclerotic heart disease of native coronary artery without angina pectoris; E89.0 Postprocedural hypothyroidism; G47.00 Insomnia, unspecified; M45.9 Ankylosing spondylitis of unspecified sites in spine; Z95.5 Presence of coronary angioplasty implant and graft; Z85.71 Personal history of Hodgkin lymphoma; Z92.21 Personal history of antineoplastic chemotherapy; Z90.49 Acquired absence of other specified parts of digestive tract; Z88.8 Allergy status to other drugs, medicaments and biological substances; Z83.3 Family history of diabetes mellitus; Z82.49 Family history of ischemic heart disease and other diseases of the circulatory system; Z90.710 Acquired absence of both cervix and uterus
CPT/HCPCS: 36415; 80048; 83735; 84100; 84443; 85025; 85027; 90471; 90686; 93005

== ENCOUNTER 2019-07-31 11:33 | Emergency (ER) | payer BC ==
[~2019-07-31] VITALS: Ht 172.7 cm; Wt 71.7 kg
[~2019-07-31 11:33] MED LIST changes: +ASPI-630 PO; +ATOR40TA59 PO; +DILT240T8 PO; +DOFE250C PO; +DULA0.75 SQ; +HYDR-2869 PO; +LEVO125T PO; +LISI-334 PO; +MAGN400C PO; +METF500T11 PO; +METF750T39 PO; +NEBI10TA3 PO; +OMEP20TA8 PO; +ONDA4TAB7 PO; +PRAS10TA9 PO; +SULF500T7 PO; +TEMA15CA PO; +TRAM50TA PO
--- NOTE | 2019-07-31 12:02 | PHYS DOC ---
Past History Past Medical History: CAD, Cancer, Diabetes, Hypertension, Hyperthyroid Past Surgical History: Cancer Surgery, Hysterectomy, Other Additional Past Surgical Histo: thyroid Smoking: Non-smoker Alcohol Use: None Drug Use: None Adult General Chief Complaint Chief Complaint: CHEST PAIN HPI HPI Patient is a 53-year-old female presents complaining of chest discomfort that started approximately 45 minutes prior to arrival. It became much better as she laid down on the hospital bed here in the ER. She has a known history of atrial fibrillation. She is felt like she is been going in and out of atrial fibrillation since yesterday. Became worse again this morning. No radiation of the discomfort. She received a cardiac stent last month and is currently on Effient as her blood thinner. She denies any discomfort with deep breaths. She was also recently admitted for Tikosyn therapy for her known history of atrial fibrillation. She is normally on diltiazem. No worsening of the chest discomfort with exertion. Discomfort was moderate to severe at worst. Currently mild. [] Review of Systems Review of Systems Constitutional: Denies fever or chills [] Eyes: Denies change in visual acuity, redness, or eye pain [] HENT: Denies nasal congestion or sore throat [] Respiratory: Denies cough or shortness of breath [] Cardiovascular: No additional information not addressed in HPI [] GI: Denies abdominal pain, nausea, vomiting, bloody stools or diarrhea [] : Denies dysuria or hematuria [] Musculoskeletal: Denies back pain or joint pain [] Integument: Denies rash or skin lesions [] Neurologic: Denies headache, focal weakness or sensory changes [] Endocrine: Denies polyuria or polydipsia [] All other systems were reviewed and found to be within normal limits, except as documented in this note. Allergies Allergies Allergies Coded Allergies Type Severity Reaction Last Updated Verified bacitracin Allergy Severe rash 02/12/17 Yes neomycin Allergy Severe rash 02/12/17 Yes polymyxin B Allergy Severe rash 02/12/17 Yes meperidine Allergy Intermediate rash 02/12/17 Yes Physical Exam Physical Exam Constitutional: Well developed, well nourished, no acute distress, non-toxic appearance. [] HENT: Normocephalic, atraumatic, bilateral external ears normal, oropharynx moist, no oral exudates, nose normal. [] Eyes: PERRLA, EOMI, conjunctiva normal, no discharge. [] Neck: Normal range of motion, no tenderness, supple, no stridor. [] Cardiovascular:Heart rate is tachycardic with an irregularly irregular rhythm, no murmur [] Lungs & Thorax: Bilateral breath sounds clear to auscultation [] Abdomen: Bowel sounds normal, soft, no tenderness, no masses, no pulsatile masses. [] Skin: Warm, dry, no erythema, no rash. [] Back: No tenderness, no CVA tenderness. [] Extremities: No tenderness, no cyanosis, no clubbing, ROM intact, no edema. [] Neurologic: Alert and oriented X 3, normal motor function, normal sensory function, no focal deficits noted. [] Psychologic: Affect normal, judgement normal, mood normal. [] EKG EKG EKG shows atrial fibrillation at 152 bpm, left axis, QTC of 503 ms, no ST elevation. Interpreted by me at 1147[] Radiology/Procedures Radiology/Procedures PROCEDURE: PORTABLE CHEST 1V Single view of the chest. 07/31/2019 11:56 AM Indication: Chest pain. Comparison: None Findings: There is no focal consolidation. There is no pleural effusion or pneumothorax. The cardiomediastinal silhouette and pulmonary vasculature are within normal limits. No acute osseous abnormalities are seen. Impression: No evidence of acute cardiopulmonary process. [] Course & Med Decision Making Course & Med Decision Making Pertinent Labs and Imaging studies reviewed. (See chart for details) ED course: Patient arrived, was placed in bed, and tolerated exam well. She was given aspirin. IV access was established, she was given a diltiazem bolus and then an infusion. At approximately 1245 she had a rhythm change that appears to be converted to sinus rhythm. The diltiazem was weaned. Repeat EKG was obtained as noted above. Findings and plan were discussed with patient and family. Consultation was made with the hospitalist service who will admit her at [place]. Further consultation was made with cardiology service. She was transferred in improved condition with all questions answered. Medical decision makin-year-old female with known cardiac disease having received a recent stent. Concerned about possibility of a supply demand mismatch given the A. fib with RVR. This does not appear to be an ST elevation HI. Repeat EKG is being obtained. He is being transferred for further evaluation and treatment.[] Dragon Disclaimer Dragon Disclaimer This electronic medical record was generated, in whole or in part, using a voice recognition dictation system. Departure Departure: Impression: Primary Impression: Chest pain Additional Impression: Atrial fibrillation with rapid ventricular response Disposition: 05 TRANSFER OTHER Admitting Physician: Sylvester Saavedra Condition: IMPROVED Referrals: JAMES RODRIGUEZ DO (PCP) Problem Qualifiers Primary Impression: Chest pain Chest pain type: unspecified Qualified Codes: R07.9 - Chest pain, unspecified KAY SCHROEDER DO Jul 31, 2019 12:02
[2019-07-31] MEDS ORDERED: IV DEXTROSE 5% 100 ML IV ONE (12:03)
[2019-07-31 12:15] LABS: BASO # 0.1 x10^3/uL (0.0-0.2); BASO % 1 % (0-3); EOS # 0.1 x10^3/uL (0.0-0.7); EOS % 1 % (0-3); HEMATOCRIT 36.8 % (36.0-47.0); HEMOGLOBIN 11.9 g/dL (12.0-15.5); LYMPH # 3.3 x10^3/uL (1.0-4.8); LYMPH % 42 % (24-48); MEAN CORPUSCULAR HEMOGLOBIN 26 pg (25-35); MEAN CORPUSCULAR HGB CONC 32 g/dL (31-37); MEAN CORPUSCULAR VOLUME 80 fL (79-100); MONO # 0.8 x10^3/uL (0.0-1.1); MONO % 10 % (0-9); NEUT # 3.7 x10^3uL (1.8-7.7); NEUT % 46 % (31-73); PLATELET COUNT 316 x10^3/uL (140-400); RED BLOOD COUNT 4.61 x10^6/uL (3.50-5.40); RED CELL DISTRIBUTION WIDTH 15.5 % (11.5-14.5)
[2019-07-31] MEDS ORDERED: ASPIRIN 81 MG TAB.CHEW PO ONE (12:30)
[2019-07-31] MEDS ORDERED: dilTIAZem 25 MG/5 ML VIAL IVP ONE (12:30)
[2019-07-31] MEDS ORDERED: dilTIAZem VIAL 125 MG in IV DEXTROSE 5% 100 ML IV ONE (12:30)
[2019-07-31 12:35] LABS: ALBUMIN 3.7 g/dL (3.4-5.0); ALBUMIN/GLOBULIN RATIO 0.9 (1.0-1.7); CALCIUM 9.7 mg/dL (8.5-10.1); CREATININE 1.5 mg/dL (0.6-1.0); GFR 36.5; MAGNESIUM 1.6 mg/dL (1.8-2.4); POTASSIUM 3.7 mmol/L (3.5-5.1); TOTAL BILIRUBIN 0.3 mg/dL (0.2-1.0); TOTAL PROTEIN 7.7 g/dL (6.4-8.2)
--- NOTE | 2019-07-31 12:36 | RAD ---
Single view of the chest. 07/31/2019 11:56 AM Indication: Chest pain. Comparison: None Findings: There is no focal consolidation. There is no pleural effusion or pneumothorax. The cardiomediastinal silhouette and pulmonary vasculature are within normal limits. No acute osseous abnormalities are seen. Impression: No evidence of acute cardiopulmonary process. Electronically signed by: Oleg Ramirez MD (07/31/2019 12:33 PM) [id number]
[2019-07-31 12:42] LABS: BACTERIA,URINE 0 /HPF (0-FEW); BILIRUBIN,URINE NEG (NEG); CLARITY,URINE CLEAR; COLOR,URINE YELLOW; GLUCOSE,URINE NEG (NEG); NITRITE,URINE NEG (NEG); RBC,URINE 0 /HPF (0-2); SQUAMOUS EPITHELIAL CELL,UR OCC /LPF; UROBILINOGEN,URINE 0.2 mg/dL (0.2 mg/dL); WBC,URINE RARE /HPF (0-4)
[2019-07-31 13:10] VITALS: BP 155/97
--- NOTE | 2019-08-01 07:29 | EKG ---
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
--- NOTE | 2019-08-01 07:29 | EKG ---
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
== END 2019-07-31 13:35 | disposition short-term general hospital (02) ==
LOC: ER 11:33
DX: R07.89 Other chest pain (principal); I48.20 Chronic atrial fibrillation, unspecified; I25.10 Atherosclerotic heart disease of native coronary artery without angina pectoris; E11.9 Type 2 diabetes mellitus without complications; I10 Essential (primary) hypertension; E03.9 Hypothyroidism, unspecified; Z79.899 Other long term (current) drug therapy; Z88.1 Allergy status to other antibiotic agents; Z88.8 Allergy status to other drugs, medicaments and biological substances
CPT/HCPCS: 36415; 71045; 80053; 81001; 83690; 83735; 83880; 84443; 84484; 85025; 85379; 85610; 85730; 93005; 96365; 96376; 99285; J3490